=== PATIENT | male | born 1960 | race Hispanic/Latino ===

== ENCOUNTER 2023-04-13 09:42 | Inpatient (IN) | payer OTHER, SELFPAY ==
[2023-04-13] MEDS ORDERED: Ketorolac Tromethamine 30 MG (1 mL) VIAL ONE (10:30)
[2023-04-13 10:41] LABS: #Eosinphils 0.1 thou/uL (0.0-0.7); #Monocytes 0.6 thou/uL (0.11-0.59); #Neutrophils 8.8 thou/uL (1.40-6.50); %Basophils 0.3 % (0.0-1.0); %Lymphocytes 8.8 % (21.0-51.0); %Monocytes 5.2 % (0.0-10.0); %Neutrophils 84.2 % (42.0-75.0); Hematocrit 43.2 % (42.0-52.0); Hemoglobin 14.4 g/dL (14.0-18.0); Mean Corpuscular HGB CONC 33.3 g/dL (32.0-36.0); Mean Corpuscular Hemoglobin 29.9 pg (27.0-31.0); Mean Corpuscular Volume 89.8 fl (78.0-98.0); Mean Platelet Volume 8.5 fL (7.4-10.4); Platelet Count 388 10x3/uL (130-400); RBC Distribution Width 12.1 % (11.5-14.5); Red Blood Cell (RBC) Count 4.81 mill/uL (4.70-6.10); White Blood Cell (WBC) Count 10.5 10x3/uL (4.8-10.8)
[2023-04-13] MEDS ORDERED: Cefepime 2 GM VIAL ONE (10:59)
[2023-04-13] MEDS ORDERED: Sodium Chloride 0.9% 100 ML ONE (11:00)
[2023-04-13] MEDS ORDERED: Boostrix 0.5 ML (Tdap) VIAL (>/=7 yrs of age) ONE ×2 (11:00→13:18)
[2023-04-13 11:02] LABS: ALT (SGPT) 36 U/L (8-55); AST (SGOT) 18 U/L (5-34); Albumin 3.4 g/dL (3.4-4.8); Alkaline Phosphatase 147 U/L (40-110); Anion Gap 13 mmol/L (10-20); BUN (Urea Nitrogen) 17 mg/dL (8.4-25.7); Bilirubin, Total 0.5 mg/dL (0.2-1.2); Calc. Creatinine Clearance 0 mL/min (70-130); Calcium 8.7 mg/dL (7.8-10.44); Carbon Dioxide 22 mmol/L (23-31); Chloride 106 mmol/L (98-107); Estimated GFR 99; Globulin 3.3 g/dL (2.4-3.5); Glucose 293 mg/dL (80-115); Protein, Total 6.7 g/dL (5.8-8.1); Sodium 137 mmol/L (136-145)
[2023-04-13] MEDS ORDERED: Vancomycin (BATCH) 2 GM/500 ML BAG ONE (12:01)
[2023-04-13] MEDS ORDERED: Dextrose 5% in Water 1,000 ML IV PRN (12:37)
[2023-04-13] MEDS ORDERED: Dextrose 50% Abboject 50 ML SYRINGE SLOW IVP PRN (12:37)
[2023-04-13] MEDS ORDERED: Glucagon 1 MG/ML KIT IM PRN (12:37)
[2023-04-13] MEDS ORDERED: Senokot S 8.6-50 MG TAB PO PRN (12:37)
[2023-04-13] MEDS ORDERED: VANCO/ABX IVPB PRN (12:44)
[2023-04-13 13:56] VITALS: BMI 31.8
[2023-04-13] MEDS: Insulin Regular 300 UNITS/3 ML VIAL SC PRN ×2 (16:54→19:25)
[2023-04-13] MEDS: Acetaminophen 325 MG TAB PO PRN (19:24)
[2023-04-13] MEDS ORDERED: Vancomycin 2 GM in Sodium Chloride 0.9% 250 ML 250 ML IVPB SCH (21:00)
[2023-04-13] MEDS ORDERED: Cefepime 2 GM in Sodium Chloride 0.9% 100 ML IVPB SCH (21:00)
[2023-04-13] MEDS: Cefepime 2 GM in Sodium Chloride 0.9% 100 ML IVPB SCH (21:45)
[2023-04-13] MEDS: Famotidine 20 MG TAB PO SCH (21:45)
[2023-04-13] MEDS: Vancomycin (BATCH) 1.25 GM in Premix 1 BAG IVPB SCH (22:59)
[2023-04-14] MEDS: Acetaminophen 325 MG TAB PO PRN ×3 (01:11→20:47)
[2023-04-14] MEDS: Insulin Regular 300 UNITS/3 ML VIAL SC PRN ×3 (06:26→17:33)
[2023-04-14] MEDS: Famotidine 20 MG TAB PO SCH ×2 (08:34→20:54)
[2023-04-14] MEDS ORDERED: FLU VACC QS2023-24(6MOS UP)/PF 60 MCG/0.5 ML SYRINGE IM ONE (09:00)
[2023-04-14] MEDS ORDERED: HYDROcodone/Acetaminophen 5/325 mg Tablet PO SCH (09:00)
[2023-04-14] MEDS ORDERED: Lidocaine 1% w/Epinephrine 1:100K 20 ML VIAL FS SCH (10:00)
[2023-04-14] MEDS ORDERED: Bupivacaine PF 0.5% 30 ML VIAL FS SCH (10:00)
[2023-04-14] MEDS ORDERED: Morphine 4 MG/ML VIAL SLOW IVP SCH (10:30)
[2023-04-14] MEDS: Cefepime 2 GM in Sodium Chloride 0.9% 100 ML IVPB SCH ×2 (10:36→22:25)
[2023-04-14 11:03] LABS: #Eosinphils 0.2 thou/uL (0.0-0.7); #Monocytes 0.6 thou/uL (0.11-0.59); #Neutrophils 6.9 thou/uL (1.40-6.50); %Basophils 0.4 % (0.0-1.0); %Eosinophils 1.9 % (0.0-10.0); %Lymphocytes 16.5 % (21.0-51.0); %Monocytes 6.4 % (0.0-10.0); %Neutrophils 74.5 % (42.0-75.0); Hematocrit 42.2 % (42.0-52.0); Hemoglobin 13.8 g/dL (14.0-18.0); Mean Corpuscular HGB CONC 32.7 g/dL (32.0-36.0); Mean Corpuscular Volume 91.7 fl (78.0-98.0); Mean Platelet Volume 8.7 fL (7.4-10.4); Platelet Count 414 10x3/uL (130-400); RBC Distribution Width 12.5 % (11.5-14.5); White Blood Cell (WBC) Count 9.3 10x3/uL (4.8-10.8)
[2023-04-14] MEDS: Vancomycin (BATCH) 1.25 GM in Premix 1 BAG IVPB SCH (11:10)
[2023-04-14 11:24] LABS: Anion Gap 14 mmol/L (10-20); BUN (Urea Nitrogen) 11 mg/dL (8.4-25.7); Calc. Creatinine Clearance 139 mL/min (70-130); Carbon Dioxide 22 mmol/L (23-31); Chloride 105 mmol/L (98-107); Estimated GFR 104; Glucose 322 mg/dL (80-115); Potassium 3.5 mmol/L (3.5-5.1); Sodium 137 mmol/L (136-145)
[2023-04-14] MEDS: HYDROcodone/Acetaminophen 5/325 mg Tablet PO PRN ×2 (15:53→20:47)
[2023-04-14] MEDS: Morphine 4 MG/ML VIAL SLOW IVP PRN (18:41)
[2023-04-14] MEDS: Insulin Glargine 30 UNITS/0.3 ML VIAL SC SCH (20:48)
[2023-04-14 23:21] LABS: Vancomycin, Trough 6.2 ug/mL
[2023-04-15] MEDS: Acetaminophen 325 MG TAB PO PRN ×2 (01:00→21:19)
[2023-04-15] MEDS: Vancomycin (BATCH) 1.25 GM in Premix 1 BAG IVPB SCH ×4 (01:01→17:07)
[2023-04-15] MEDS: HYDROcodone/Acetaminophen 5/325 mg Tablet PO PRN ×4 (06:02→22:56)
[2023-04-15 07:59] LABS: Hemoglobin A1c 12.5 % (4.0-6.0)
[2023-04-15] MEDS: Famotidine 20 MG TAB PO SCH ×2 (09:31→20:19)
[2023-04-15] MEDS: Cefepime 2 GM in Sodium Chloride 0.9% 100 ML IVPB SCH ×2 (11:57→22:14)
[2023-04-15] MEDS: Insulin Regular 300 UNITS/3 ML VIAL SC PRN ×2 (12:17→17:07)
[2023-04-15] MEDS: Morphine 4 MG/ML VIAL SLOW IVP PRN (12:18)
[2023-04-15] MEDS ORDERED: Amlodipine 5 MG TAB PO SCH ×2 (13:00→21:15)
[2023-04-15] MEDS: hydrALAZINE 20 MG/ML VIAL SLOW IVP PRN ×2 (17:48→22:28)
[2023-04-15] MEDS: Insulin Glargine 30 UNITS/0.3 ML VIAL SC SCH (20:20)
[2023-04-15] MEDS ORDERED: Atorvastatin Calcium 20 MG TAB PO SCH (21:00)
[2023-04-15] MEDS ORDERED: Valsartan 80 MG TAB PO SCH (21:15)
[2023-04-16 00:56] LABS: Vancomycin, Trough 10.9 ug/mL
[2023-04-16] MEDS: Vancomycin (BATCH) 1.25 GM in Premix 1 BAG IVPB SCH ×2 (02:00→08:59)
[2023-04-16] MEDS: Insulin Regular 300 UNITS/3 ML VIAL SC PRN ×2 (05:49→11:52)
[2023-04-16] MEDS: HYDROcodone/Acetaminophen 5/325 mg Tablet PO PRN ×2 (05:50→11:51)
[2023-04-16] MEDS ORDERED: Amlodipine 10 MG TAB PO SCH (09:00)
[2023-04-16] MEDS ORDERED: Amlodipine 5 MG TAB PO SCH (09:00)
[2023-04-16] MEDS ORDERED: metFORMIN 500 MG TAB PO SCH (09:00)
[2023-04-16] MEDS ORDERED: glipiZIDE 10 MG TAB PO SCH (09:00)
[2023-04-16] MEDS ORDERED: Valsartan 80 MG TAB PO SCH (09:00)
[2023-04-16] MEDS ORDERED: Tamsulosin HCl 0.4 MG CAP PO SCH (09:00)
[2023-04-16] MEDS: Famotidine 20 MG TAB PO SCH (09:01)
[2023-04-16] MEDS: Morphine 4 MG/ML VIAL SLOW IVP PRN (09:06)
[2023-04-16] MEDS: Cefepime 2 GM in Sodium Chloride 0.9% 100 ML IVPB SCH (11:52)
[2023-04-16 15:50] VITALS: BP 168/70; TEMP 98.6
== END 2023-04-16 16:12 | disposition home or self-care (01) | DRG 638 ==
LOC: ERS 09:42 → T4-B 12:21 → OBSVTOIN 04-14 09:06
PROVIDERS: ADMIT Family Medicine; ATTEND Family Medicine
PROC: 0J9Q0ZZ Drainage of Right Foot Subcutaneous Tissue and Fascia, Open Approach (ICD-10-PCS; principal; 2023-04-14)
DX: E11.628 Type 2 diabetes mellitus with other skin complications (principal); L02.415 Cutaneous abscess of right lower limb; L03.115 Cellulitis of right lower limb; B95.1 Streptococcus, group B, as the cause of diseases classified elsewhere; I10 Essential (primary) hypertension; E78.5 Hyperlipidemia, unspecified; E11.649 Type 2 diabetes mellitus with hypoglycemia without coma; G47.33 Obstructive sleep apnea (adult) (pediatric)
CPT/HCPCS: 36415; 36416; 80048; 80053; 80202; 83036; 83605; 85025; 86140; 87040; 87070; 87077; 87205; 90471; 90715; 96365; 96375; 96376; 97139; G0378; J0360; J0692; J1815; J1885; J2270; J3370; J3490; S0020

== ENCOUNTER 2025-03-10 10:52 | Outpatient (CLI) | payer OTHER | END 2025-03-10 10:53 | disposition home or self-care (01) | LOC: ULT 10:52 | PROVIDERS: ATTEND Student in an Organized Health Care Education/Training Program | DX: Z12.2 Encounter for screening for malignant neoplasm of respiratory organs (principal); Z87.891 Personal history of nicotine dependence | CPT/HCPCS: 76706 ==